=== PATIENT | male | born 1985 | race Caucasian/White ===

== ENCOUNTER 2017-01-08 17:09 | Emergency (ER) | payer OTHER ==
--- NOTE | 2017-01-08 17:24 | ED Physician Documentation ---
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 Has had lower back pain for couple months or so after injury at work and has had meds, muscle relaxants, physical therapy and has still had some pains at times. Shoulder has had some mild pains with lifting and use. Now with marked pain in both today. No dyspnea , no chest pain anteriorly.) Where injury occurred: Home Timing - onset: Today (but had some prior pains with injury at work in past few months.) Timing - details: Abrupt onset Worsened by: Moving (of left shoulder abduction and for low back, flexion and rotation.) Associated symptoms: No: Fever, Weakness, Numbness, Incontinent of urine Similar symptoms before: No diagnosis Recently seen: Not recently seen Review of Systems Constitutional: denies: Fever, Chills Cardiac: denies: Chest pain / pressure, Palpitations Respiratory: denies: Dyspnea, Cough GI: denies: Abdominal Pain : denies: Dysuria, Hematuria, Discharge Skin: denies: Rash, Lesions Neurologic: denies: Focal weakness, Numbness PD PAST MEDICAL HISTORY - Past Medical History Past Medical History: No - Past Surgical History Past Surgical History: No - Present Medications Home Medications: Ambulatory Orders Medication Instructions Recorded Confirmed Dexamethasone [Decadron] 4 mg PO DAILY #5 tablet 01/08/17 HYDROcod/ACETAM 5/325 [[place]incoln 5/325] 1 tab PO Q6H PRN #20 tablet 01/08/17 Methocarbamol [Robaxin] 500 mg PO Q6H PRN #25 tablet 01/08/17 Naproxen 375 mg PO BID #20 tablet 01/08/17 - Allergies Allergies/Adverse Reactions: Allergies Allergy/AdvReac Type Severity Reaction Status Date / Time Penicillins Allergy Rash Verified 01/08/17 17:20 - Social History Does the pt smoke?: No Smoking Status: Never smoker - Immunizations Immunizations are current?: Yes PD ED PE NORMAL - Vitals Vital signs reviewed: Yes - General General: Alert and oriented X 3, Well developed/nourished - Cardiac Cardiac: RRR, No murmur - Respiratory Respiratory: Clear bilaterally - Abdomen Abdomen: Soft, Non tender - Back Back: No spinal TTP (left lower muscles with tenderness, no rash. Guarded ROM of the low back. ) - Derm Derm: Normal color, Warm and dry, No rash - Extremities Extremities: Other (left shoulder with tenderness laterally and suprascapular. No rash. ROtator movements not really hurting separately. ) - Neuro Neuro: Alert and oriented X 3, No motor deficit, No sensory deficit, Normal speech - Psych Psych: Normal mood, Normal affect Results - Vitals Vitals: Oxygen O2 Source Room air - Rads (name of study) left shoulder Radiology: Prelim report reviewed, EMP read contemporaneously (normal) PD MEDICAL DECISION MAKING - ED course Complexity details: reviewed results, considered differential (lumbar strain/ pain; also been having shoulder pains that could be rotator cuff versus larger muscle groupings of shoulder, as it hurts with abduction but not as much with rotational movements per se. ), d/w patient Departure - Departure Disposition: 01 Home, Self Care Clinical Impression: Acute lumbar myofascial strain Qualifiers: Encounter type: initial encounter Qualified Code(s): S39.012A - Strain of muscle, fascia and tendon of lower back, initial encounter Shoulder pain, acute Qualifiers: Laterality: left Qualified Code(s): M25.512 - Pain in left shoulder Condition: Stable Record reviewed to determine appropriate education?: Yes Instructions: ED Sprain Strain Lumbar, ED Sprain Shoulder Follow-Up: [facility] [Provider Group] Prescriptions: Dexamethasone [Decadron] 4 mg PO DAILY #5 tablet HYDROcod/ACETAM 5/325 [[place]incoln 5/325] 1 tab PO Q6H PRN #20 tablet PRN Reason: Pain Methocarbamol [Robaxin] 500 mg PO Q6H PRN #25 tablet PRN Reason: Spasms Naproxen 375 mg PO BID #20 tablet Comments: There shoulder x-ray looks okay. This does not mean he do not have a problem with that as he can still have ligament and muscle pains. Similarly for the low back it would sound muscular or ligamentous. Use naproxen twice daily for the next 7-10 days. Decadron daily for 5 more days which is also an anti- inflammatory. Methocarbamol for muscle spasms 3-4 times a day. Add Tylenol or hydrocodone as needed for pain. Limited lifting and bending for the next 3-5 days. Follow-up with your primary care in about 3 days, call for an appointment. Forms: Activity restrictions Discharge Date/Time: 01/08/17 19:57
[2017-01-08] MEDS ORDERED: DEXAMETHASONE 10 MG/ML VIAL ONE (18:30)
[2017-01-08] MEDS ORDERED: IBUPROFEN 600 MG TABLET PO ONE (18:30)
[2017-01-08] MEDS ORDERED: METHOCARBAMOL 500 MG TABLET PO ONE (18:30)
[2017-01-08] MEDS: METHOCARBAMOL 500 MG TABLET PO STA (18:34)
[2017-01-08] MEDS: IBUPROFEN 600 MG TABLET PO STA (18:34)
[2017-01-08] MEDS: DEXAMETHASONE 10 MG/ML VIAL PO STA (18:34)
[2017-01-08 19:36] VITALS: BP 137/85
--- NOTE | 2017-01-08 21:13 | XRAY Preliminary Report ---
Exam: XR Shoulder 3 View LT IMPRESSION: Normal shoulder radiography. [facility] SITE ID: [id number]
--- NOTE | 2017-01-08 21:16 | XRAY Report ---
EXAM: LEFT SHOULDER RADIOGRAPHY EXAM DATE: 01/08/2017 06:38 PM. CLINICAL HISTORY: Shoulder pain with lifting. COMPARISON: None. TECHNIQUE: 3 views. FINDINGS: Bones: Normal. No fracture or bone lesion. Joints: The glenohumeral and acromioclavicular joints are normal. Soft tissues: The visualized hemithorax is unremarkable. No soft tissue swelling. IMPRESSION: Normal shoulder radiography. [facility] Referring Provider Line: [phone] SITE ID: [id number]
== END 2017-01-08 19:57 | disposition home or self-care (01) ==
LOC: ED 17:09
DX: S39.012A Strain of muscle, fascia and tendon of lower back, initial encounter (principal); X50.9XXA Other and unspecified overexertion or strenuous movements or postures, initial encounter; Y93.89 Activity, other specified; Y92.009 Unspecified place in unspecified non-institutional (private) residence as the place of occurrence of the external cause; M25.512 Pain in left shoulder
CPT/HCPCS: 99283